=== PATIENT | female | born 1950 | race Caucasian/White ===

== ENCOUNTER 2018-01-25 13:18 | Emergency (ER) | payer MEDICARE, OTHER ==
[~2018-01-25] VITALS: Ht 157.5 cm; Wt 102.5 kg
[~2018-01-25 13:18] MED LIST: ASPIRIN325 MG PO; ATORVASTATIN CA10 MG PO; CIPRO500 MG PO; COLACE100 MG PO; FLAGYL500 MG PO; FLEXERIL10 MG PO; GLUCOPHAGE500 MG PO; HYDROCHLOROTHIA25 MG PO; HYDROCODON-ACE1 EA10 PO; IBUPROFEN600 MG PO; KEFLEX500 MG PO; LORTAB 7.5-3251 EACH PO; LOSARTAN-HCTZ1 EAC2 PO; NORCO 5-325 TA1 EACH PO; OMEPRAZOLE40 MG PO; OXYCODONE HCL5 MG PO; PEPCID20 MG PO; PERCOCET 5-3251 EACH PO; PROAIR HFA8.5 GM INH; PROMETHAZINE HC25 M1 PO; PROVENTIL HFA6.7 GM INH; PROZAC20 MG PO; PROZAC40 MG PO; SENOKOT8.6 MG PO; SYNTHROID125 MCG PO; TYLENOL EXTRA500 MG PO; TYLENOL WITH C1 EACH PO; UNITHROID150 MCG PO; VOLTAREN100 GM TP; ZESTORETIC 20-1 EACH PO; ZITHROMAX250 MG PO; ZOFRAN ODT4 MG PO; ZOFRAN ODT8 MG PO; ZOFRAN4 MG PO
[2018-01-25] MEDS ORDERED: CIPRO250 MG PO (14:52)
[2018-01-25] MEDS ORDERED: LISINOPRIL20 MG PO (15:10)
--- NOTE | 2018-01-26 16:00 | EKG ---
[facility] [address] [facility] [place], [place] [address] Signed Normal sinus rhythm Cannot rule out Inferior infarct , age undetermined ST \T\ T wave abnormality, consider anterior ischemia Abnormal ECG No previous ECGs available Confirmed by MAXIMILIANO COLON MD ([id number]) on 01/26/2018 4:00:06 PM Electronically Signed By: MAXIMILIANO COLON MD 01/26/18 1600 PATIENT NAME: GIODIAZ Electrocardiogram DATE OF : 54 PHYSICIAN: MAXIMILIANO COLON MD REPORT #: [id number] REPORT IS CONFIDENTIAL AND NOT TO BE RELEASED WITHOUT AUTHORIZATION
[2018-03-07] MEDS ORDERED: LEVOTHYROXINE175 MCG PO (13:57)
[2018-03-07] MEDS ORDERED: HUMALOG100 UNITS/ SUB-Q (13:58)
[2018-03-07] MEDS ORDERED: AMIODARONE HCL200 MG PO (14:00)
[2018-03-07] MEDS ORDERED: CLOPIDOGREL75 MG PO (14:01)
[2018-03-07] MEDS ORDERED: WARFARIN SODIUM5 MG PO (14:01)
[2018-03-07] MEDS ORDERED: LEVEMIR100 UNIT/1 SUB-Q (14:01)
[2018-03-07] MEDS ORDERED: METOPROLOL TART25 MG PO (14:02)
[2018-03-07] MEDS ORDERED: ASCORBIC ACID500 M3 PO (14:03)
[2018-03-07] MEDS ORDERED: ATORVASTATIN CA80 MG PO (14:07)
== END 2018-01-25 15:12 | disposition home or self-care (01) ==
LOC: ED 13:18
DX: R07.9 Chest pain, unspecified (principal); N39.0 Urinary tract infection, site not specified; J45.909 Unspecified asthma, uncomplicated; I10 Essential (primary) hypertension; E03.9 Hypothyroidism, unspecified; E11.9 Type 2 diabetes mellitus without complications; E78.00 Pure hypercholesterolemia, unspecified; K21.9 Gastro-esophageal reflux disease without esophagitis; Z87.891 Personal history of nicotine dependence; Z88.8 Allergy status to other drugs, medicaments and biological substances; Z88.5 Allergy status to narcotic agent; Z79.899 Other long term (current) drug therapy
CPT/HCPCS: 71045; 80053; 81001; 84484; 85025; 87077; 87088; 87186; 93005; 93010; 96372; 99283; J2060

== ENCOUNTER 2018-01-26 09:35 | Emergency (ER) | payer MEDICARE, OTHER ==
[~2018-01-26] VITALS: Ht 157.5 cm; Wt 102.5 kg
[~2018-01-26 09:35] MED LIST changes: +CIPRO250 MG PO; +LISINOPRIL20 MG PO
--- NOTE | 2018-01-26 16:03 | EKG ---
[facility] [address] [facility] [place] [address] Signed Normal sinus rhythm ST \T\ T wave abnormality, consider anterior ischemia Prolonged QT Abnormal ECG When compared with ECG of 25-JAN-2018 13:23, (Unconfirmed) No significant change was found Confirmed by MAXIMILIANO COLON MD ([id number] on 01/26/2018 4:03:45 PM Electronically Signed By: MAXIMILIANO COLON MD 01/26/18 1603 PATIENT NAME: DIAZ POWERS Electrocardiogram DATE OF : 54 PHYSICIAN: MAXIMILIANO COLON MD REPORT #: [id number] REPORT IS CONFIDENTIAL AND NOT TO BE RELEASED WITHOUT AUTHORIZATION
[2018-03-07] MEDS ORDERED: LEVOTHYROXINE175 MCG PO (13:57)
[2018-03-07] MEDS ORDERED: HUMALOG100 UNITS/ SUB-Q (13:58)
[2018-03-07] MEDS ORDERED: AMIODARONE HCL200 MG PO (14:00)
[2018-03-07] MEDS ORDERED: LEVEMIR100 UNIT/1 SUB-Q (14:01)
[2018-03-07] MEDS ORDERED: CLOPIDOGREL75 MG PO (14:01)
[2018-03-07] MEDS ORDERED: WARFARIN SODIUM5 MG PO (14:01)
[2018-03-07] MEDS ORDERED: METOPROLOL TART25 MG PO (14:02)
[2018-03-07] MEDS ORDERED: ASCORBIC ACID500 M3 PO (14:03)
[2018-03-07] MEDS ORDERED: ATORVASTATIN CA80 MG PO (14:07)
== END 2018-01-26 11:44 | disposition short-term general hospital (02) ==
LOC: ED 09:35
DX: I20.0 Unstable angina (principal); I10 Essential (primary) hypertension; J45.909 Unspecified asthma, uncomplicated; E03.9 Hypothyroidism, unspecified; E11.9 Type 2 diabetes mellitus without complications; E78.00 Pure hypercholesterolemia, unspecified; K21.9 Gastro-esophageal reflux disease without esophagitis; Z88.8 Allergy status to other drugs, medicaments and biological substances; Z88.5 Allergy status to narcotic agent; Z79.2 Long term (current) use of antibiotics; Z79.899 Other long term (current) drug therapy
CPT/HCPCS: 80048; 84484; 85025; 93005; 93010; 96374; 96375; 99285; J1170; J1644; J2060; J2405; J7030